=== PATIENT | female | born 1950 | race Caucasian/White ===

== ENCOUNTER → 2017-12-21 | Outpatient (CLI) | payer MEDICARE, OTHER ==
[~2017-12-21] MED LIST: ASPIRIN325 PO; CALCIUM 600 +1 EAC1 PO; COZAAR100 MG PO; EFFEXOR XR75 MG PO; LABETALOL HCL200 MG PO; MAGOX 400400 MG PO; OMEPRAZOLE40 MG PO; POTASSIUM20 PO; PRAVASTATIN SOD10 MG PO; PROBIOTIC1 EAC1 PO; ULTRAM 50MG TAB50 MG PO; VESICARE 5 MG TA5 MG PO; VITAMIN D1000 UNI1 PO
== END ==
LOC: M.MRI 17:04
DX: I67.82 Cerebral ischemia (principal); R42 Dizziness and giddiness; R26.2 Difficulty in walking, not elsewhere classified

== ENCOUNTER 2018-01-13 10:59 | Emergency (ER) | payer MEDICARE, OTHER ==
[~2018-01-13] VITALS: Ht 154.9 cm; Wt 58.5 kg
[2018-01-13 11:05] VITALS: BP 154/64
[2018-01-13] MEDS ORDERED: EFFEXOR XR75 MG PO (11:09)
[2018-01-13] MEDS ORDERED: POTASSIUM20 PO (11:09)
[2018-01-13] MEDS ORDERED: LABETALOL HCL200 MG PO (11:09)
[2018-01-13] MEDS ORDERED: OMEPRAZOLE40 MG PO (11:10)
[2018-01-13] MEDS ORDERED: VITAMIN D1000 UNI1 PO (11:10)
[2018-01-13] MEDS ORDERED: CALCIUM 600 +1 EAC1 PO (11:10)
[2018-01-13] MEDS ORDERED: MAGOX 400400 MG PO (11:10)
[2018-01-13] MEDS ORDERED: PROBIOTIC1 EAC1 PO (11:10)
[2018-01-13] MEDS ORDERED: ASPIRIN325 PO (11:10)
[2018-01-13] MEDS ORDERED: COZAAR100 MG PO (11:10)
[2018-01-13] MEDS ORDERED: ULTRAM 50MG TAB50 MG PO (11:11)
[2018-01-13] MEDS ORDERED: VESICARE 5 MG TA5 MG PO (11:11)
[2018-01-13] MEDS ORDERED: PRAVASTATIN SOD10 MG PO (11:11)
[2018-01-13 11:23] LABS: HEMATOCRIT 30.4 % (37.0-47.0); HEMOGLOBIN 9.8 gm/dL (12.0-15.0); MCH 27.3 pg (26.0-34.0); MCHC 32.2 g/dL (28.0-37.0); MCV 84.8 fL (80.0-100.0); MPV 7.5 fl. (7.2-11.1); RBC 3.59 mil/uL (4.20-5.00); RDW-CV 19.9 % (10.5-14.5); WBC 4.8 thou/uL (4.0-11.0)
[2018-01-13 11:35] LABS: CALCIUM 8.5 mg/dL (8.5-10.1); CREATININE 2.6 mg/dL (0.6-1.3); POTASSIUM 4.5 mmol/L (3.5-5.1)
[2018-01-13 11:36] LABS: APTT 25.9 Seconds (25.0-31.3); INR 1.1; PROTIME 10.4 Seconds (9.20-11.50)
[2018-01-13 11:39] LABS: ALBUMIN 2.8 g/dL (3.4-5.0); TOTAL BILIRUBIN 0.3 mg/dL (<0.1-1.0); TOTAL PROTEIN 5.7 g/dL (6.4-8.2)
[2018-01-13 13:19] LABS: URINE BILIRUBIN NEGATIVE (Negative); URINE BLOOD TRACE (Negative); URINE CLARITY CLEAR; URINE COLOR YELLOW; URINE GLUCOSE-RANDOM NEGATIVE (Negative); URINE KETONES NEGATIVE (Negative); URINE LEUKOCYTES NEGATIVE (Negative); URINE NITRITE NEGATIVE (Negative); URINE PROTEIN 3+ (Negative); URINE SPECIFIC GRAVITY 1.025 (1.005-1.030); URINE UROBILINOGEN 0.2 E.U./dl (0.2-1.0)
[2018-01-13 13:28] LABS: SQUAMOUS 4-10 Moderate /LPF (0-3); URINE RBC 3-10 Few /HPF (0-2); URINE WBC 0-5 Rare /HPF (0-5)
[2018-01-13 13:29] LABS: BACTERIA None Seen /HPF (None Seen); CASTS None Seen /LPF (None Seen); CRYSTALS None Seen /LPF (None Seen); MUCUS None Seen strn/LPF (None Seen)
[2018-01-13 15:00] VITALS: BP 207/105
--- NOTE | 2018-01-14 17:23 | EKG ---
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
== END 2018-01-13 15:00 | disposition short-term general hospital (02) ==
LOC: M.ERS 10:59 → M.TBA-ER 12:32
PROVIDERS: Emergency Medicine
DX: I63.9 Cerebral infarction, unspecified (principal); I12.9 Hypertensive chronic kidney disease with stage 1 through stage 4 chronic kidney disease, or unspecified chronic kidney disease; N18.9 Chronic kidney disease, unspecified; F32.9 Major depressive disorder, single episode, unspecified; K21.9 Gastro-esophageal reflux disease without esophagitis; Z86.2 Personal history of diseases of the blood and blood-forming organs and certain disorders involving the immune mechanism; Z96.651 Presence of right artificial knee joint; Z88.1 Allergy status to other antibiotic agents